=== PATIENT | male | born 1980 | race Caucasian/White ===

== ENCOUNTER 2024-11-08 16:18 | Emergency (ER) | payer SELFPAY ==
[2024-11-08] MEDS ORDERED: HYDROCODONE/APAP 5/325 MG TAB ONE (16:23)
[2024-11-08] MEDS ORDERED: KETOROLAC 30 MG/ML INJ ONE (16:23)
--- NOTE | 2024-11-08 16:27 | ER ---
Nurse's Notes [facility] Name: Ko Rosado Age: 43 yrs Sex: Male : 1980 Arrival Date: 11/08/2024 Time: 16:18 Bed IW1 Private MD: Diagnosis: Dental root caries Presentation: 11/08 16:23 Chief complaint: Patient states: c/o 10/10 tooth pain on the R side of mouth radiating nh2 to the jaw/zoroastrian. Took Ibuprofen at home, but reports minimal relief. Coronavirus screen: At this time, the client does not indicate any symptoms associated with coronavirus-19. Ebola Screen: Patient denies travel to an Ebola-affected area in the 21 days before illness onset. No symptoms or risks identified at this time. Initial Sepsis Screen: Does the patient meet any 2 criteria? No. Patient's initial sepsis screen is negative. Does the patient have a suspected source of infection? No. Patient's initial sepsis screen is negative. Risk Assessment: Do you want to hurt yourself or someone else? Patient reports no desire to harm self or others. Onset of symptoms was November 06, 2024. 16:23 Method Of Arrival: Ambulatory nh2 16:23 Acuity: KATE 4 nh2 Triage Assessment: 16:25 General: Appears distressed, uncomfortable, Behavior is cooperative, appropriate for nh2 age, crying, restless. Pain: Complains of pain in R side of mouth Pain radiates to forehead and right ear Pain currently is 10 out of 10 on a pain scale. Quality of pain is described as aching, Pain began 2-3 days ago. 16:38 EENT: Reports pain in Tooth on R side of face since 2 days ago. nh2 Historical: - Allergies: 16:25 No Known Allergies; nh2 - Home Meds: 16:25 None [Active]; nh2 - PSHx: 16:25 oral surgery; hernia repair; nh2 - Immunization history:: Adult Immunizations unknown. - Infectious Disease History:: Denies. - Social history:: Smoking status: Patient reports the use of cigarette tobacco products, unknown amount 20 years. Screenin:37 [facility] ED Fall Risk Assessment (Adult) History of falling in the last 3 months, nh2 including since admission No falls in past 3 months (0 pts) Confusion or Disorientation No (0 pts) Intoxicated or Sedated No (0 pts) Impaired Gait No (0 pts) Mobility Assist Device Used No (0 pt) Altered Elimination No (0 pt) Score/Fall Risk Level 0 - 2 = Low Risk. [facility] ED Fall Risk Assessment (Adult) Score/Fall Risk Level 0 - 2 = Low Risk Oriented to surroundings, Maintained a safe environment, Educated pt \T\ family on fall prevention, incl call for assistance when getting out of bed, Assessed \T\ reinforced patient's understanding of fall precautions. Abuse screen: Denies threats or abuse. Nutritional screening: No deficits noted. Tuberculosis screening: No symptoms or risk factors identified. Assessment: 16:43 Reassessment: see triage assessment. nh2 Vital Signs: 16:23 BP 113 / 84; Pulse 71; Resp 20; Pulse Ox 100% on R/A; Weight 72.57 kg; Height 6 ft. 1 nh2 in. ; Pain 10/10; 16:38 BP 113 / 84; Pulse 78; Resp 20; Temp 97.8; Pulse Ox 100% ; nh2 16:23 Body Mass Index 21.11 (72.57 kg, 185.42 cm) nh2 16:23 Pain Scale: Adult nh2 ED Course: 16:19 Patient arrived in ED. mr 16:22 Jalil Mullins, [facility] dr5 16:22 Twan Aguila DO is Attending Physician. dr5 16:25 Triage completed. nh2 16:28 Brandon Mckee Jr, RN is Primary Nurse. nh2 16:37 Patient has correct armband on for positive identification. Provided Education on: care nh2 plan. 16:37 No provider procedures requiring assistance completed. Patient did not have IV access nh2 during this emergency room visit. 18:01 Primary Nurse role handed off by Brandon Mckee Jr, RN dr5 Administered Medications: 16:37 Drug: Ketorolac IM 30 mg IM once Route: IM; Site: right deltoid; nh2 16:42 Follow up: Response: Medication administered at discharge. nh2 18:01 CANCELLED (Changed to 1 [place]): hydrocodone-acetaminophen5 mg-325 mg 2 tabs PO once dr5 18:01 Drug: HYDROcodone-acetaminophen PO 5 mg-325 mg 1 tabs PO once Route: PO; dr5 Medication: 16:39 VIS not applicable for this client. nh2 Outcome: 16:27 Discharge ordered by . dr5 16:38 Discharged to home ambulatory, with significant other, nh2 16:38 Condition: good 16:38 Discharge instructions given to patient, significant other, Instructed on discharge instructions, follow up and referral plans. medication usage, Demonstrated understanding of instructions, follow-up care, medications, Prescriptions given X 3, 16:44 Patient left the ED. nh2 18:02 Patient left the ED. dr5 Signatures: Genet Choudhury, Reg Reg mr Rafi Chua, Brandon, RN RN nh2 Jalil Mullins, FLUID DYNAMICIST-C FLUID DYNAMICIST-Cdr5 Corrections: (The following items were deleted from the chart) 18:01 16:35 HYDROcodone-acetaminophen PO 5 mg-325 mg 2 tabs PO nh2 dr5 18:01 16:42 Response: Medication administered at discharge.; only one tab administered per dr5 request of pt nh2
--- NOTE | 2024-11-08 16:28 | EDPHYS ---
Physician Documentation [facility] Name: Ko Rosado Age: 43 yrs Sex: Male : 1980 Arrival Date: 11/08/2024 Time: 16:18 Bed IW1 Private MD: ED Physician Twan Aguila HPI: 11/08 16:30 This 43 yrs old Male presents to ER via Ambulatory with complaints of dr5 Toothache. 16:30 The patient presents with pain, redness, swelling. Onset: The symptoms/episode dr5 began/occurred 2 day(s) ago. Patient is a 43-year-old male with no past med history coming in with right sided toothache that been going for the last 2 days. Patient reports that he needs to have dental work completed and will have it completed when he gets paid on Friday. Patient reports taking muscle relaxer at home with mild relief.. Historical: - Allergies: 16:25 No Known Allergies; nh2 - Home Meds: 16:25 None [Active]; nh2 - PSHx: 16:25 oral surgery; hernia repair; nh2 - Immunization history:: Adult Immunizations unknown. - Infectious Disease History:: Denies. - Social history:: Smoking status: Patient reports the use of cigarette tobacco products, unknown amount 20 years. ROS: 16:30 Constitutional: as per hpi dr5 Exam: 16:30 Constitutional: This is a well developed, well nourished patient who is awake, alert, dr5 and in no acute distress. Head/Face: Normocephalic, atraumatic. Eyes: Pupils equal round and reactive to light, extra-ocular motions intact. Lids and lashes normal. Conjunctiva and sclera are non-icteric and not injected. Cornea within normal limits. Periorbital areas with no swelling, redness, or edema. Neck: Trachea midline, no thyromegaly or masses palpated, and no cervical lymphadenopathy. Supple, full range of motion without nuchal rigidity, or vertebral point tenderness. No Meningismus. Chest/axilla: Normal chest wall appearance and motion. Nontender with no deformity. No lesions are appreciated. Cardiovascular: Regular rate and rhythm with a normal S1 and S2. Normal PMI, no JVD. No pulse deficits. Respiratory: Lungs have equal breath sounds bilaterally, clear to auscultation. No rales, rhonchi or wheezes noted. No increased work of breathing, no retractions or nasal flaring. Abdomen/GI: Soft, non-tender, non-distended Back: No spinal tenderness. No costovertebral tenderness. Full range of motion. Skin: Warm, dry with normal turgor. Normal color with no rashes, no lesions, and no evidence of cellulitis. MS/ Extremity: Pulses equal, no cyanosis. Neurovascular intact. Full, normal range of motion. Neuro: Awake and alert, GCS 15, oriented to person, place, time, and situation. Cranial nerves II-XII grossly intact. Motor strength 5/5 in all extremities. Sensory grossly intact. Cerebellar exam normal. Normal gait. 16:30 ENT: Mouth: is normal, no acute changes, Dental exam: dental caries, that is moderate, specifically in the upper right third molar (#1), upper right second molar (#2), lower right second molar (#31) and lower right third molar (#32), gum swelling, that is mild, specifically in the upper right third molar (#1), upper right second molar (#2), lower right second molar (#31) and lower right third molar (#32), pain, that is moderate, specifically in the upper right third molar (#1), upper right second molar (#2), lower right second molar (#31) and lower right third molar (#32), Vital Signs: 16:23 BP 113 / 84; Pulse 71; Resp 20; Pulse Ox 100% on R/A; Weight 72.57 kg; Height 6 ft. 1 nh2 in. ; Pain 10/10; 16:38 BP 113 / 84; Pulse 78; Resp 20; Temp 97.8; Pulse Ox 100% ; nh2 16:23 Body Mass Index 21.11 (72.57 kg, 185.42 cm) nh2 16:23 Pain Scale: Adult nh2 MDM: 16:22 Medical Screening Exam initiated dr5 16:30 Differential diagnosis: dental caries, gingivitis, dental abscess, pericoronitis, dr5 aphthous ulcers. Data reviewed: vital signs, nurses notes. Consideration of Admission/Observation Escalation of care including admission/observation considered. Escalation considered patient found to have trismus or not handling secretions well. I considered the following discharge prescriptions or medication management in the emergency department I discussed and recommended Over The Counter medications, Medications were administered in the Emergency Department. See MAR. Care significantly affected by the following Social Determinants of Health: Poor access to healthcare and/or lack of insurance, Poor access to transportation, Inadequate housing, Problems related to employment. Counseling: I had a detailed discussion with the patient and/or guardian regarding the historical points, exam findings, and any diagnostic results supporting the discharge/admit diagnosis, the presence of at least one elevated blood pressure reading (>120/80) during this emergency department visit, the need for outpatient follow up, for definitive care, a dentist, to return to the emergency department if symptoms worsen or persist or if there are any questions or concerns that arise at home. Medication response: Toradol markedly relieved the patient's pain. Special discussion: I discussed with the patient/guardian in detail that at this point there is no indication for admission to the hospital. It is understood, however, that if the symptoms persist or worsen the patient needs to return immediately for re-evaluation. Based on the history and exam findings, there is no indication for further emergent testing or inpatient evaluation. I discussed with the patient/guardian the need to see a dentist for further evaluation of the symptoms. ED course: I gave patient dental office low-cost clinic information. Will give patient antibiotics as well as pain medication to help with the infection as well as pain. All question answered. Strict ER precautions given. Patient will follow-up with dentist.. Administered Medications: 16:37 Drug: Ketorolac IM 30 mg IM once Route: IM; Site: right deltoid; nh2 16:42 Follow up: Response: Medication administered at discharge. nh2 18:01 CANCELLED (Changed to 1 [place]): hydrocodone-acetaminophen5 mg-325 mg 2 tabs PO once dr5 18:01 Drug: HYDROcodone-acetaminophen PO 5 mg-325 mg 1 tabs PO once Route: PO; dr5 Disposition: 20:06 I was immediately available on-site in the Emergency Department for consultation in the ms3 care of the patient. Disposition Summary: 11/08/24 16:27 Discharge Ordered Notes: Location: Home dr5 Condition: Stable dr5 Diagnosis - Dental root caries dr5 Followup: dr5 - With: Emergency Department - When: As needed - Reason: Worsening of condition Followup: dr5 - With: Private Physician - When: 1 - 2 days - Reason: Recheck today's complaints, Continuance of care, Re-evaluation by your physician Discharge Instructions: - Discharge Summary Sheet dr5 - Dental Abscess dr5 Forms: - Medication Reconciliation Form dr5 - Antibiotic Education dr5 - Prescription Opioid Use dr5 - Patient Portal Instructions dr5 - Leadership Thank You Letter dr5 Prescriptions: - Augmentin 875-125 mg Oral Tablet - take 1 tablet ORAL route every 12 hours for 10 days; 20 tablet; Refills: 0, dr5 Product Selection Permitted - Ibuprofen 800 mg Oral Tablet - take 1 tablet ORAL route every 12 hours As needed take with food; 20 tablet; dr5 Refills: 0, Product Selection Permitted - Tramadol 50 mg Oral Tablet - take 1 tablet ORAL route every 8 hours as needed; 12 tablet; Refills: 0, dr5 Product Selection Permitted Signatures: Twan Aguila DO DO ms3 Brandon Mckee Jr RN RN nh2 Jalil Mullins, DIONY-C CHILD SPECIALIST-Cdr5 Corrections: (The following items were deleted from the chart) 18:01 16:26 HYDROcodone-acetaminophen PO 5 mg-325 mg 2 tabs PO once ordered. dr5 dr5 18:01 16:35 HYDROcodone-acetaminophen PO 5 mg-325 mg 2 tabs PO once given. nh2 dr5 18:01 18:01 HYDROcodone-acetaminophen PO 5 mg-325 mg 2 tabs PO once ordered. dr5 dr5
[2024-11-08 22:36] VITALS: BP 113/84; O2SAT 100
[2024-11-08 22:40] VITALS: TEMP 97.8
== END 2024-11-08 18:02 | disposition home or self-care (01) ==
LOC: ER 16:18
DX: K02.7 Dental root caries (principal)
CPT/HCPCS: 96372; 99284